=== PATIENT | male | born 1965 | race Hispanic/Latino ===

== ENCOUNTER 2024-07-25 18:22 | Emergency (ER) | payer BC ==
[~2024-07-25] VITALS: Ht 172.7 cm; Wt 99.8 kg
--- NOTE | 2024-07-25 19:17 | EKG ---
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 : 1965 Requested By: RAKESH MILLER Order Number: [id number] Reading MD: José Flores Measurements Intervals [place] Rate: 76 P: 39 ID: [id number] QRS: 24 QRSD: 87 T: 50 QT: 391 QTc: 439 Interpretive Statements Sinus rhythm No previous ECG available for comparison Electronically Signed On 07-26-2024 16:15:26 PODIATRY ASSISTANT by José Flores Please click the below link to view image of tracing.
--- NOTE | 2024-07-25 19:23 | ERN ---
ED Note History of Present Illness Stated Complaint: DIZZINESS,HEADACHES Chief Complaint: Dizzy/Light Headed Time Seen by MD: 18:23 Time Seen by Midlevel: 18:23 Dictation: The patient is a 58-year-old male with a history of left foot surgery who presen ts to the emergency department with complaints of dizziness while driving about 2 hours prior to arrival. Patient reports dizziness was worse when turning. Reported feeling like a the room was spinning. Denies any nausea or vomiting, denies any use of blood thinners, denies any head trauma. Patient denies any headache. Patient during assessment reported no longer feeling any dizziness. Allergies: Coded Allergies: Penicillins (Unverified Allergy, Unknown, 07/25/24) Past Medical History Past Medical History: No Pertinent History Surgical History: None Social History: Smokers, ETOH RN Note Reviewed/Agreed w/PFSH: Yes Review of System Dictation Constitutional: Negative for fever,chills, and weight loss Eyes: Negative for injury, pain,redness, and discharge ENT: Negative for injury,pain or swelling Cardiovascular: Negative for chest pain, palpitations, and edema Respiratory: Negative for shortness of breath, cough, and wheezing, Abdomen/GI: Negative for abdominal pain, nausea, vomiting, diarrhea, and constipation Back: Negative for injury and pain : Negative for injury, bleeding and discharge MS/Extremity: Negative for injury and deformity Skin: Negative for rash, and discoloration Neuro: Negative for headache, weakness, numbness, tingling, and seizure positive for dizziness Psych: Negative for suicide ideation, homicidal ideation, and hallucinations Initial Vital Sign VS Vital Signs Date Time Temp Pulse Resp B/P (MAP) Pulse Ox O2 Delivery O2 Flow Rate FiO2 07/25/24 18:42 98.2 85 18 186/99 98 Physical Exam Dictation Vital Signs reviewed General Appearance: Alert, oriented x 3, no acute distress, well developed, nourished. Head and Face: non-traumatic. Eyes: PERRL, pink conjunctivas, eyelid no trauma, anterior chamber with arcus senilis. Positive nystagmus Ears: Pinnas intact and no signs of trauma or erythema ear canals clear and no discharge TM no erythema Nose: No discharge, no bleeding. Oropharynx: Mouth normal, tongue pink. pharynx clear,no erythema, tonsils no exudates, no abscesses noted, mucous membrane moist Neck: Supple, non-tender, no thyromegaly, no masses, no JVD, no bruits Breast:Deferred Chest:No tenderness, no crepitus, no paradoxical movement, no retractions Lungs:Clear, well-ventilated, symmetric, no rales, no wheezing, no rhonchi, no stridor, good breath sounds bilaterally Heart: Regular rate, regular rhythm, no murmur, no gallops Vascular: no peripheral edema, Abdomen: Soft, positive bowel sounds, nondistended, no guarding, nontender, no rebound, no masses no hepatomegaly, no splenomegaly, no Montgomery's sign, no hernias. Rectal: Deferred Genital: Deferred Neurological: Normal speech, motor function intact, sensory function intact , no facial droop, no slurred speech, upper extremities equal and strength, lower extremities equal and strength, NIH 0 Musculoskeletal: Neck nontender, full range of motion, back nontender, full range of motion, Extremities: nontender, full range of motion Skin: Color pink, dry, no turgor, no rash, no lacerations, no abrasions, no contusions. Lymphatic: Deferred Results (Laboratory/Radiology) Laboratory/Radiology Laboratory Tests Test 07/25/24 19:48 07/25/24 20:01 White Blood Count 8.6 K/uL (4.8-10.8) Red Blood Count 4.83 MIL/uL (4.50-6.20) Hemoglobin 16.2 g/dL (14.0-18.0) Hematocrit 43.5 % (42-54) Mean Corpuscular Volume 90.1 fL (79-99) Mean Corpuscular Hemoglobin 33.5 pg (27.0-33.0) H Mean Corpuscular Hemoglobin Concent 37.2 g/dL (32.0-36.0) H Red Cell Distribution Width 11.9 % (11.0-15.5) Platelet Count 155 K/uL (130-400) Mean Platelet Volume 10.9 fL (7.5-10.5) H Immature Granulocyte % (Auto) 0.5 % (0-1) Neutrophils (%) (Auto) 84.6 % (40.0-77.0) H Lymphocytes (%) (Auto) 9.4 % (21.0-51.0) L Monocytes (%) (Auto) 4.6 % (3.0-13.0) Eosinophils (%) (Auto) 0.4 % (0.0-8.0) Basophils (%) (Auto) 0.5 % (0.0-5.0) Neutrophils # (Auto) 7.3 K/uL (1.8-7.7) Lymphocytes # (Auto) 0.8 K/uL (1.0-4.8) L Monocytes # (Auto) 0.4 K/uL (0.1-1.0) Eosinophils # (Auto) 0.03 K/uL (0.00-0.70) Basophils # (Auto) 0.04 K/uL (0.00-0.20) Absolute Immature Granulocyte (auto 0.04 K/uL (0-1) Nucleated Red Blood Cells 0.0 % (0.0-0.19) White Cell Morphology Comment See comments Red Blood Cell Morphology See comments Sodium Level 134 mmol/L (136-145) L Potassium Level 4.0 mmol/L (3.5-5.1) Chloride Level 95 mmol/L (101-111) L Carbon Dioxide Level 31 mmol/L (21-32) Blood Urea Nitrogen 9 mg/dL (7-18) Creatinine 0.9 mg/dL (0.5-1.3) Glomerular Filtration Rate Calc 100 mL/min (>90) Random Glucose 226 mg/dL (70-105) H Total Calcium 9.3 mg/dL (8.5-10.1) Troponin I High Sensitivity 4 ng/L (4-75) Urine Color LIGHT-YELLOW (YELLOW) Urine Appearance CLEAR (CLEAR) Urine pH 5.5 (5.0-8.0) Urine Specific [place] 1.018 (1.001-1.031) Urine Protein NEGATIVE mg/dL (NEGATIVE) Urine Glucose (UA) >=1000 mg/dL (NEGATIVE) H Urine Ketones NEGATIVE mg/dL (NEGATIVE) Urine Occult Blood NEGATIVE (NEGATIVE) Urine Nitrate NEGATIVE (NEGATIVE) Urine Bilirubin NEGATIVE mg/dL (NEGATIVE) Urine Urobilinogen 0.2 mg/dL (0.2-1.0) Urine Leukocyte Esterase NEGATIVE [place]/uL Urine RBC 0-1 /HPF (0-1) Urine WBC 0-1 /HPF (0-1) Urine Bacteria None /HPF (None Seen) REASON: dizzy ORDERING PHYSICIAN: RAKESH MILLER PROCEDURE: HEAD WO - CT HEAD/BRAIN W/O CONTRAST CT HEAD/BRAIN W/O CONTRAST HISTORY: Dizziness COMPARISON: None TECHNIQUE: Multiple sequential axial images of the head were obtained from the base of the skull through vertex. Patient was not given contrast through intravenous route. FINDINGS: The ventricles and extraventricular CSF spaces are nondilated for patient's age. There is no midline shift, mass effect or herniation. No acute intracranial bleed is seen. Visualized portion of the paranasal sinuses are grossly within normal limits. IMPRESSION: 1. No acute intracranial bleed is seen. CT was performed with one or more following dose reduction techniques: automated exposure control, adjustment of the mA and kv according to patient's size, or use of a iterative reconstruction technique. Labs Reviewed?: Yes EKG: (+) NSR, (+) rhythm EKG Comment: EKG 07/06/20241914 ventricular rate 76, regular rate and rhythm, normal sinus rhythm, no STEMI. ED Course ED Course Orders Procedure Category Date Status Time Cbc With Differential LAB 07/25/24 Complete 18:28 12 Lead Ekg Tracing- EKG 07/25/24 Complete Technical 18:28 0.9%Nacl 1000ml (Ns PHA 07/25/24 Complete 1000ml) 18:30 Troponin I High LAB 07/25/24 Complete Sensitivity 18:28 Basic Metabolic Panel LAB 07/25/24 Complete 18:28 Meclizine Hcl 25 Mg PHA 07/25/24 Complete (Antivert 25 Mg) 18:30 Ct Head/Brain W/O CT 07/25/24 Resulted Contrast 18:28 Urinalysis Profile LAB 07/25/24 Complete 19:55 Current Medications Medications (Trade) Dose Ordered Sig/Nicolas Route PRN Reason Start Time Stop Time Status Last Admin Dose Admin Meclizine HCl (ANTIvert 25 mg) 25 mg ONCE ONCE PO 07/25/24 18:30 07/25/24 18:31 DC 07/25/24 19:43 Sodium Chloride 1,000 ml @ 0 mls/hr ONCE ONCE IV 07/25/24 18:30 07/25/24 18:31 DC 07/25/24 19:43 Vital Signs Date Time Temp Pulse Resp B/P (MAP) Pulse Ox O2 Delivery O2 Flow Rate FiO2 07/25/24 18:42 98.2 85 18 186/99 98 Medical Decision Making MDM The patient is a 58-year-old male with a history of left foot surgery who presents to the emergency department with complaints of dizziness while driving about 2 hours prior to arrival. Patient reports dizziness was worse when turning. Reported feeling like a the room was spinning. Denies any nausea or vomiting, denies any use of blood thinners, denies any head trauma. Patient denies any headache. Patient during assessment reported no longer feeling any dizziness. CBC showed no leukocytosis, no anemia, chemistry showed hyperglycemia, hyponatremia, hypochloremia, negative troponin, EKG normal sinus rhythm, CT scan with no acute pathology. Patient continues in no distress, neurologically i ntact. No longer dizzy will be discharged to follow up with PCP. Differential diagnosis: Vertigo, ACS, electrolyte imbalance, dehydration, intracerebral hemorrhage Need for hospitalization: Patient does not meet criteria for hospitalization. There are no social concerns with this patient. DX & DISP Disposition: Discharge Departure Impression: Primary Impression: Vertigo Additional Impressions: Mild dehydration, Dizziness, Hyperglycemia, Hyponatremia, Hypochloremia Condition: Stable Scripts Meclizine HCl (Meclizine HCl) 25 Mg Tablet 25 MG PO TID for vertigo, #30 TAB 0 Refills Prov: RAKESH MILLERP 07/25/24 Additional Instructions: Your blood sugar levels levels were elevated. Please follow up with PCP for further management. If symptoms worsen please return to ER. FOLLOW-UP WITH PRIMARY CARE PROVIDER IN 1 TO 2 DAYS. TAKE MEDICATIONS DIRECTED HERE IN THE EMERGENCY ROOM. OKAY TO CONTINUE HOME MEDICATIONS UNLESS OTHERWISE DISCUSSED DURING YOUR VISIT IN THE EMERGENCY ROOM TODAY. RETURN TO YOUR NEAREST EMERGENCY ROOM IF SYMPTOMS WORSEN OR IF THERE IS NO IMPROVEMENT. CALL 911 IF YOU NEED IMMEDIATE ASSISTANCE. TAKE TYLENOL OR MOTRIN [id number] NEEDED AND IF NO CONTRAINDICATIONS ARE PRESENT. INCREASE ORAL HYDRATION. A WOUND CULTURE OR URINE CULTURE WAS ORDERED HERE IN THE EMERGENCY ROOM DEPARTMENT PLEASE FOLLOW-UP WITH PRIMARY CARE PROVIDER AND ADVISE THEM TO GET REPEAT PORTS FROM OUR FACILITY. IF YOU HAD ANY DAYANARA WRAP/SPLINTS THAT WERE APPLIED HERE, PLEASE DO NOT REMOVE THEM UNTIL YOU SEE YOUR PRIMARY CARE OR SPECIALTY. Referrals: SELF,REFERRAL (PCP) Time of Disposition: 20:59 I have reviewed the case, and I agree with, Diagnosis and Plan RAKESH MILLER [facility] Jul 25, 2024 19:23
[2024-07-25] MEDS: 0.9%NACL 1000ML 1,000 ML IV ONE (19:43)
[2024-07-25] MEDS: mecliZINE HCL 25 MG TABLET PO ONE (19:43)
[2024-07-25 19:57] LABS: BASOPHILS # (AUTO) 0.04 K/uL (0.00-0.20); BASOPHILS % (AUTO) 0.5 % (0.0-5.0); EOSINOPHILS # (AUTO) 0.03 K/uL (0.00-0.70); EOSINOPHILS % (AUTO) 0.4 % (0.0-8.0); HEMATOCRIT 43.5 % (42-54); IMMATURE GRANULOCYTE ABSOLUTE 0.04 K/uL (0-1); LYMPHOCYTES # (AUTO) 0.8 K/uL (1.0-4.8); LYMPHOCYTES % (AUTO) 9.4 % (21.0-51.0); MEAN CORPUSCULAR HEMOGLOBIN 33.5 pg (27.0-33.0); MEAN CORPUSCULAR HGB CONC 37.2 g/dL (32.0-36.0); MEAN CORPUSCULAR VOLUME 90.1 fL (79-99); MONOCYTES # (AUTO) 0.4 K/uL (0.1-1.0); MONOCYTES % (AUTO) 4.6 % (3.0-13.0); NEUTROPHILS # (AUTO) 7.3 K/uL (1.8-7.7); NEUTROPHILS % (AUTO) 84.6 % (40.0-77.0); PLATELET COUNT (AUTO) 155 K/uL (130-400); RED BLOOD CELL COUNT(AUTO) 4.83 MIL/uL (4.50-6.20); RED CELL DISTRIBUTION WIDTH 11.9 % (11.0-15.5); WHITE BLOOD COUNT (AUTO) 8.6 K/uL (4.8-10.8)
[2024-07-25 20:04] LABS: CREATININE 0.9 mg/dL (0.5-1.3)
[2024-07-25 20:22] LABS: ADD UA MICROSCOPIC YES; APPEARANCE,URINE CLEAR (CLEAR); BILIRUBIN,URINE NEGATIVE (NEGATIVE); COLOR,URINE LIGHT-YELLOW (YELLOW); GLUCOSE, URINE (UA) >=1000 mg/dL (NEGATIVE); KETONES,URINE NEGATIVE (NEGATIVE); LEUKOCYTE ESTERASE ,URINE NEGATIVE Leu/uL (NEGATIVE); NITRATE,URINE NEGATIVE (NEGATIVE); OCCULT BLOOD,URINE NEGATIVE (NEGATIVE); PH,URINE 5.5 (5.0-8.0); PROTEIN,URINE NEGATIVE (NEGATIVE); UROBILINOGEN,URINE 0.2 mg/dL (0.2-1.0)
[2024-07-25 20:30] LABS: RBC,URINE 0-1 /HPF (0-1); WBC,URINE 0-1 /HPF (0-1)
[2024-07-25] MEDS ORDERED: MECL-302 PO (21:00)
[2024-07-25 21:11] VITALS: BP 154/85; PULSE 80; RESP 18; TEMP 98.4; O2SAT 99
== END 2024-07-25 21:12 | disposition home or self-care (01) ==
LOC: EDH 18:22
DX: R42 Dizziness and giddiness (principal); E86.0 Dehydration; E87.1 Hypo-osmolality and hyponatremia; E87.8 Other disorders of electrolyte and fluid balance, not elsewhere classified; F17.200 Nicotine dependence, unspecified, uncomplicated; Z88.0 Allergy status to penicillin
CPT/HCPCS: 99284; 70450; 84484; 80048; 85025; 81001; 36415; 93005; J7030